=== PATIENT | female | born 1990 | race Two or more races ===

== ENCOUNTER 2016-08-12 10:03 | Emergency (ER) | payer MEDICAID ==
[~2016-08-12] VITALS: Ht 167.6 cm; Wt 82.0 kg
[2016-08-12 10:38] VITALS: BP 129/75
[2016-08-12] MEDS ORDERED: SODIUM CHLORIDE 0.9% 1,000 ML IV ONE (10:46)
[2016-08-12] MEDS ORDERED: FAMOTIDINE 20MG/2ML VIAL IV ONE (11:00)
[2016-08-12] MEDS ORDERED: MAGNESIUM/ALUMINUM HYDROXIDE/SIMETHICONE 30ML UDC PO ONE (11:00)
[2016-08-12 11:40] LABS: BASOPHILS % 0.6 % (0.0-2.0); EOSINOPHILS % 0.7 % (0.0-5.0); HEMOGLOBIN. 9.5 g/dL (12.0-16.0); LYMPHOCYTES % 16.4 % (20.0-50.0); MEAN CORPUSCULAR HGB CONC 30.7 g/dL (31.0-37.0); MEAN PLATELET VOLUME 8.9 fl (7.4-10.4); MONOCYTES % 10.4 % (2.0-8.0); NEUTROPHILS % 71.9 % (40.0-76.0); PLATELET 226 x1000/uL (130-400); RED BLOOD CELL COUNT 4.78 mill/uL (4.2-5.4); RED CELL DISTRIBUTION WIDTH 21.3 % (11.6-14.6); WHITE BLOOD COUNT 9.4 x1000/uL (4.5-11.0)
[2016-08-12 11:43] LABS: DIFFERENTIAL COMMENT 1
[2016-08-12 11:44] LABS: ADD RBC MORPHOLOGY YES
[2016-08-12 12:02] LABS: ANION GAP 13; CALCIUM 8.9 mg/dL (8.5-10.1); CARBON DIOXIDE 27 mEq/L (21-32); CHLORIDE 102 mEq/L (98-107); INDEX HEMOLYSI 1 (1-3); INDEX ICTERIC 1 (1-4); INDEX LIPEMIC 1 (1-3); UREA NITROGEN BLOOD 7 mg/dL (7-21); eGFR > 60 mL/min (>60)
[2016-08-12 12:09] LABS: B-HCG QUANTITATIVE 5585 mIU/mL (<3)
[2016-08-12 13:30] LABS: PLATELET ESTIMATE NORMAL
[2016-08-12 13:31] LABS: ANISOCYTOSIS 2+
== END 2016-08-12 13:10 | disposition home or self-care (01) ==
LOC: ER 10:37
DX: O21.0 Mild hyperemesis gravidarum (principal); K29.70 Gastritis, unspecified, without bleeding; Z3A.24 24 weeks gestation of pregnancy; Z86.2 Personal history of diseases of the blood and blood-forming organs and certain disorders involving the immune mechanism
CPT/HCPCS: 36415; 76805; 80048; 84702; 85025; 86850; 86900; 86901; 96361; 96374; 99285; J3490; J7030

== ENCOUNTER 2016-10-09 09:51 | Observation (INO) | payer MEDICAID ==
[~2016-10-09] VITALS: Ht 167.6 cm; Wt 82.1 kg
[2016-10-09] MEDS ORDERED: FERR-63 PO (10:30)
[2016-10-09] MEDS ORDERED: LACTATED RINGERS 1,000 ML IV SCH (11:30)
== END 2016-10-09 15:10 | disposition home or self-care (01) ==
LOC: L&D 09:51
PROVIDERS: ADMIT Specialist; ATTEND Specialist
DX: O99.513 Diseases of the respiratory system complicating pregnancy, third trimester (principal); R07.81 Pleurodynia; O26.893 Other specified pregnancy related conditions, third trimester; R10.12 Left upper quadrant pain; Z3A.32 32 weeks gestation of pregnancy
CPT/HCPCS: 76815; 76818; 96360; 96361; 99281; G0378; J7120